=== PATIENT | female | born 1970 | race Caucasian/White ===

== ENCOUNTER 2019-11-18 09:00 | Inpatient (IN) ==
[2019-11-18] MEDS ORDERED: GLUCAGON 1 MG VIAL IM PRN ×2 (10:21→10:35)
[2019-11-18] MEDS ORDERED: DEXTROSE 50% 25 GM/50 ML VIAL IV PRN ×2 (10:21→10:35)
[2019-11-18] MEDS ORDERED: SODIUM CHLORIDE 0.9% 1,000 ML IV SCH (10:30)
[2019-11-18 10:55] LABS: Basophils # 0.1 10*3/uL (0.0-0.2); Basophils % 0.6 % (0.0-0.8); Eosinophils # 0.1 10*3/uL (0.0-0.87); Eosinophils % 0.6 % (0.00-10.9); Hematocrit 38.2 VOL% (35.7-47.0); Hemoglobin 13.6 GM/DL (12.0-16.0); Immature Granulocytes % 0.3 %; Immature Granulocytes Absolute 0.03 #; Lymphocytes % 32.6 % (21.3-54.2); Mean Corpuscular HGB Conc 35.6 GM/DL (32-36); Mean Corpuscular Volume 85.8 FL (87-102); Mean Platelet Volume 10.3 FL (9.6-12.0); Monocytes % 5.9 % (1.7-12.7); Platelet Count 214 T/CUMM (130-400); Red Blood Count 4.45 MC/CUMM (3.8-5.5); Red Cell Distribution Width 13.2 % (9.3-17.3); White Blood Count 9.3 T/CUMM (4-12)
[2019-11-18 11:14] LABS: Atypical Lymphocytes Few; Eosinophils 2 % (0-10); Hypochromasia 1+; Lymphocytes 27 % (20-55); Microcytosis Slight; Platelet Estimate Adequate; Segmented Neutrophils 69 % (50-85); Total Cells Counted 100
[2019-11-18 11:32] LABS: Alanine Aminotransferase 27 U/L (13-56); Albumin 3.7 G/DL (3.4-5.0); Alkaline Phosphatase 94 U/L (45-117); Aspartate Amino Transferase 15 U/L (0-37); Bilirubin,Total < 0.39 MG/DL (0.2-1.0); Blood Urea Nitrogen 18 MG/DL (7-18); Calcium 9.5 MG/DL (8.5-10.1); Estimated Glom Filtration Rate 59 ML/MIN; Glucose 145 MG/DL (74-106); Osmolality,Calculated 281.5 MOS/KG (273-304); Total Protein 7.6 G/DL (6.4-8.3)
[2019-11-18] MEDS: CLORAZEPATE 7.5 MG TABLET PO PRN ×2 (12:16→18:07)
[2019-11-18] MEDS ORDERED: LINACLOTIDE 145 MCG CAPSULE PO PRN (12:38)
[2019-11-18] MEDS ORDERED: ZALEPLON 5 MG CAPSULE PO PRN (12:41)
[2019-11-18] MEDS: INSULIN REGULAR 100 UNIT/ML SUBCUT SCH ×3 (12:54→20:52)
[2019-11-18] MEDS ORDERED: ONDANSETRON 4 MG TABLET PO PRN (13:02)
[2019-11-18] MEDS ORDERED: ONDANSETRON 4 MG/2 ML VIAL IV PRN (13:02)
[2019-11-18 13:50] LABS: ABG Base Excess 0.1 MMOL/L (-2.5-2.5); ABG HCO3 24.5 MMOL/L (20-26); ABG Oxygen Saturation 97.5 % (95-100); ABG PCO2 35.1 MM HG (35-48); ABG PH 7.437 (7.35-7.45); ABG PO2 82.9 MM HG (80-95); ABG TCO2 20.5 MMOL/L (23-27)
[2019-11-18] MEDS: ALBUTEROL 2.5 MG/3 ML NEB RESP TX SCH ×3 (14:30→23:47)
[2019-11-18] MEDS: CHLORHEXIDINE 4% SOLN 118 ML BOTTLE TOP SCH ×2 (17:40→20:52)
[2019-11-18] MEDS ORDERED: ALBUMIN 5% 12.5 GM/250 ML VIAL IV ONE (19:00)
[2019-11-18] MEDS ORDERED: PHENYLEPHRINE DRIP 40 MG/250 ML PREMIX IV ONE (19:01)
[2019-11-18] MEDS ORDERED: POTASSIUM CHLORIDE RIDER 100 ML IV ONE (19:01)
[2019-11-18] MEDS: ZIPRASIDONE 20 MG CAPSULE PO SCH (20:52)
[2019-11-18] MEDS: CHLORHEXIDINE 0.12% ORAL RINSE 60 ML BOTTLE SWISH/SPIT SCH (20:53)
[2019-11-18] MEDS: HYDROXYCHLOROQUINE 200 MG TABLET PO SCH (20:53)
[2019-11-18] MEDS ORDERED: GABAPENTIN 300 MG CAPSULE PO SCH (21:00)
[2019-11-18] MEDS: ARFORMOTEROL 15 MCG/2 ML NEB RESP TX SCH (23:47)
[2019-11-19] MEDS: CLORAZEPATE 7.5 MG TABLET PO PRN (00:03)
[2019-11-19] MEDS: ALBUTEROL 2.5 MG/3 ML NEB RESP TX SCH ×2 (03:14→07:01)
[2019-11-19] MEDS: CHLORHEXIDINE 4% SOLN 118 ML BOTTLE TOP SCH ×2 (03:59→10:32)
[2019-11-19] MEDS ORDERED: VANCOMYCIN 500 MG VIAL ONE (04:22)
[2019-11-19] MEDS ORDERED: PAPAVERINE 60 MG/2 ML VIAL ONE (04:22)
[2019-11-19] MEDS ORDERED: VANCOMYCIN 1,000 MG VIAL ONE (04:22)
[2019-11-19] MEDS ORDERED: VANCOMYCIN INJ 1,000 MG in SODIUM CHLORIDE 0.9% 250 ML IV ONE ×2 (05:30→08:00)
[2019-11-19] MEDS ORDERED: FAMOTIDINE 20 MG TABLET PO ONE (05:30)
[2019-11-19] MEDS ORDERED: DIAZEPAM 5 MG TABLET PO ONE (05:30)
[2019-11-19] MEDS ORDERED: CALCIUM CHLORIDE 1,000 MG/10 ML VIAL IV ONE (05:53)
[2019-11-19] MEDS ORDERED: LIDOCAINE 2% 5 ML VIAL ONE ×2 (05:53→10:21)
[2019-11-19] MEDS ORDERED: SUFentanil 250 MCG/5 ML AMP ONE (05:53)
[2019-11-19] MEDS ORDERED: PHENYLEPHRINE DRIP 20 MG/250 ML PREMIX IV ONE (05:53)
[2019-11-19] MEDS ORDERED: HEPARIN/NACL 0.9% 2 UNITS/ML 500 ML IV ONE (05:53)
[2019-11-19] MEDS ORDERED: LACTATED RINGERS 1,000 ML IV ONE (05:54)
[2019-11-19] MEDS ORDERED: SODIUM CHLORIDE 0.9% 1,000 ML IV ONE (05:54)
[2019-11-19] MEDS ORDERED: NITROGLYCERIN DRIP 50 MG/250 ML BOTTLE IV ONE (05:54)
[2019-11-19] MEDS ORDERED: SODIUM CHLORIDE 0.9% 250 ML IV ONE (05:54)
[2019-11-19] MEDS ORDERED: MINERAL OIL/PETROLATUM OPH OINT 3.5 GM TUBE ONE (05:54)
[2019-11-19] MEDS ORDERED: VECURONIUM 10 MG VIAL IV ONE (05:54)
[2019-11-19] MEDS ORDERED: ePHEDrine 50 MG/ML VIAL ONE (05:54)
[2019-11-19] MEDS ORDERED: MIDAZOLAM 10 MG/2 ML VIAL ONE (05:54)
[2019-11-19] MEDS ORDERED: ETOMIDATE 40 MG/20 ML VIAL IV ONE (05:54)
[2019-11-19] MEDS ORDERED: AMINOCAPROIC ACID 5,000 MG/20 ML VIAL ONE (05:54)
[2019-11-19] MEDS: ARFORMOTEROL 15 MCG/2 ML NEB RESP TX SCH (07:17)
[2019-11-19 07:46] LABS: ABG Base Excess -2.5 MMOL/L (-2.5-2.5); ABG HCO3 22.3 MMOL/L (20-26); ABG PCO2 38.1 MM HG (35-48); ABG PH 7.375 (7.35-7.45); ABG TCO2 19.9 MMOL/L (23-27); Glucose Heart Surgery 230 MG/DL (74-106); Hemoglobin Heart Surgery 11.7 G/DL (12.0-16.0); Ionized Calcium Arterial 1.21 MMOL/L (1.21-1.46); PCO2 Patient Temp Arterial 38.1 MMHG; PH Patient Temp Arterial 7.375; Patient Temperature 37 CELCIUS; Potassium Heart/CVR 3.7 MMOL/L (3.5-5.1); Sodium Heart/CVR 138 MMOL/L (135-145)
[2019-11-19 08:27] LABS: Bilirubin,Urine Negative (Negative); Blood, Urine Small mg/dL (Negative); Glucose,Urine (UA) >=500 mg/dL (Negative); Ketones,Urine Negative (Negative); Mucus,Urine Occasional /LPF (Occasional); Nitrite,Urine Negative (Negative); Protein,Urine Negative; RBC,Urine 1 /HPF (0-4); Squamous Epithelial Cell,Urine Occasional /HPF (0-10); Urine Appearance CLEAR (Clear); Urine Color Yellow (Yellow); Urine Specific Gravity 1.017 (1.001-1.035); Urine Urobilinogen < 2.0 EU/DL (0.2-1.0); WBC,Urine <1 /HPF (0-6)
[2019-11-19] MEDS ORDERED: FOLIC ACID 1 MG TABLET PO SCH (09:00)
[2019-11-19] MEDS ORDERED: MULTIVITAMIN (BEROCCA) TABLET PO SCH (09:00)
[2019-11-19] MEDS ORDERED: THIAMINE 100 MG TABLET PO SCH (09:00)
[2019-11-19 09:09] LABS: Hematocrit Heart Surgery 23.3 PERCENT (37-47); Hemoglobin Heart Surgery 7.5 G/DL (12.0-16.0); PCO2 Patient Temp Venous 35.9 MM HG; PH Patient Temp Venous 7.4; PO2 Patient Temp Venous 37.8 MM HG; Potassium Heart/CVR 3.8 MMOL/L (3.5-5.1); VBG HCO3 22.5 MEQ/L (24-28); VBG Oxygen Saturation 81.2 %; VBG PCO2 41.5 MMHG (41-51); VBG PH 7.357; VBG PO2 46.4 MMHG (17-40)
[2019-11-19 09:42] LABS: Hematocrit Heart Surgery 25.3 PERCENT (37-47); Hemoglobin Heart Surgery 8.1 G/DL (12.0-16.0); PCO2 Patient Temp Venous 34.6 MM HG; PH Patient Temp Venous 7.447; PO2 Patient Temp Venous 34.9 MM HG; Potassium Heart/CVR 4.1 MMOL/L (3.5-5.1); VBG Base Excess 0.3 MEQ/L (0-4); VBG HCO3 24.4 MEQ/L (24-28); VBG Oxygen Saturation 79.4 %; VBG PH 7.403; VBG PO2 42.9 MMHG (17-40)
[2019-11-19] MEDS ORDERED: THROMBIN TOPICAL (RECOMBINANT) 5,000 UNIT VIAL TOP ONE (10:13)
[2019-11-19 10:17] LABS: ABG Base Excess -1.2 MMOL/L (-2.5-2.5); ABG HCO3 23.4 MMOL/L (20-26); ABG PCO2 43.5 MM HG (35-48); ABG PH 7.355 (7.35-7.45); ABG TCO2 22.4 MMOL/L (23-27); Glucose Heart Surgery 279 MG/DL (74-106); Hematocrit Heart Surgery 29.3 PERCENT (37-47); Hemoglobin Heart Surgery 9.4 G/DL (12.0-16.0); Ionized Calcium Arterial 1.18 MMOL/L (1.21-1.46); PCO2 Patient Temp Arterial 43.5 MMHG; PH Patient Temp Arterial 7.355; Patient Temperature 37 CELCIUS; Potassium Heart/CVR 3.7 MMOL/L (3.5-5.1); Sodium Heart/CVR 136 MMOL/L (135-145)
[2019-11-19] MEDS ORDERED: PROTAMINE SULFATE 250 MG/25 ML VIAL IV ONE (10:21)
[2019-11-19] MEDS ORDERED: DEXTROSE 5% KCL 20 MEQ 20 MEQ/1,000 ML BAG IV ONE (10:21)
[2019-11-19] MEDS ORDERED: MANNITOL 100 GM/500 ML BAG IV ONE (10:21)
[2019-11-19] MEDS ORDERED: ALBUMIN 25% 25 GM/100 ML VIAL IV ONE (10:21)
[2019-11-19] MEDS ORDERED: SODIUM BICARBONATE 50 MEQ/50 ML VIAL IV ONE (10:21)
[2019-11-19] MEDS ORDERED: methylPREDNISolone SOD SUC 1,000 MG/8 ML VIAL ONE (10:22)
[2019-11-19] MEDS ORDERED: FUROSEMIDE 20 MG/2 ML VIAL ONE (10:22)
[2019-11-19] MEDS ORDERED: MAGNESIUM SULFATE 5 GM/10 ML VIAL IV ONE (10:22)
[2019-11-19] MEDS ORDERED: HEPARIN 10,000 UNIT/10 ML VIAL ONE (10:22)
[2019-11-19] MEDS: ZIPRASIDONE 20 MG CAPSULE PO SCH (10:31)
[2019-11-19] MEDS: INSULIN REGULAR 100 UNIT/ML SUBCUT SCH (10:31)
[2019-11-19] MEDS: HYDROXYCHLOROQUINE 200 MG TABLET PO SCH (10:32)
[2019-11-19] MEDS: CHLORHEXIDINE 0.12% ORAL RINSE 60 ML BOTTLE SWISH/SPIT SCH ×2 (10:32→21:18)
[2019-11-19] MEDS ORDERED: MIDAZOLAM 2 MG/2 ML VIAL IV PRN (10:54)
[2019-11-19] MEDS ORDERED: MIDAZOLAM 10 MG/2 ML VIAL IV PRN (10:54)
[2019-11-19] MEDS ORDERED: INSULIN REGULAR 100 UNIT/ML IV ONE (10:54)
[2019-11-19] MEDS ORDERED: DEXTROSE 50% 25 GM/50 ML VIAL IV PRN ×2 (10:54)
[2019-11-19] MEDS ORDERED: CHLORHEXIDINE 4% SOLN 118 ML BOTTLE TOP PRN (10:54)
[2019-11-19] MEDS ORDERED: VECURONIUM 10 MG VIAL IV PRN ×2 (10:54)
[2019-11-19] MEDS ORDERED: CALCIUM CHLORIDE 1,000 MG/10 ML SYRINGE IV PRN (10:54)
[2019-11-19] MEDS ORDERED: INSULIN REGULAR 100 UNIT/ML IV PRN (10:54)
[2019-11-19] MEDS ORDERED: MAGNESIUM SULF RIDER 2 GM in PREMIX 1 EACH IV PRN (10:54)
[2019-11-19] MEDS ORDERED: PHENYLEPHRINE DRIP 40 MG/250 ML PREMIX IV PRN (10:54)
[2019-11-19] MEDS ORDERED: LACTATED RINGERS 250 ML IV PRN (10:54)
[2019-11-19] MEDS ORDERED: NITROPRUSSIDE 100 MG in DEXTROSE 5% 250 ML IV PRN (10:54)
[2019-11-19] MEDS ORDERED: ACETAMINOPHEN 650 MG SUPP RECTAL PRN (10:54)
[2019-11-19] MEDS ORDERED: MAGNESIUM SULF RIDER 4 GM in PREMIX 1 EACH IV PRN (10:54)
[2019-11-19] MEDS ORDERED: INSULIN REGULAR DRIP 100 ML IV SCH (11:00)
[2019-11-19] MEDS ORDERED: SODIUM CHLORIDE 0.45% 1,000 ML IV SCH ×2 (11:00)
[2019-11-19] MEDS: LACTATED RINGERS 1,000 ML IV PRN ×3 (11:05→17:00)
[2019-11-19] MEDS ORDERED: fentaNYL 100 MCG/2 ML VIAL ONE (11:21)
[2019-11-19] MEDS ORDERED: ESMOLOL 100 MG/10 ML VIAL IV ONE (11:21)
[2019-11-19] MEDS ORDERED: PROTAMINE SULFATE 50 MG/5 ML VIAL IV ONE (11:33)
[2019-11-19 11:49] LABS: ABG Base Excess -1.2 MMOL/L (-2.5-2.5); ABG HCO3 23.4 MMOL/L (20-26); ABG Oxygen Saturation 98.8 % (95-100); ABG PCO2 42.7 MM HG (35-48); ABG PH 7.362 (7.35-7.45); ABG TCO2 22.2 MMOL/L (23-27); Glucose Heart Surgery 255 MG/DL (74-106); Hematocrit Heart Surgery 29.9 PERCENT (37-47); Hemoglobin Heart Surgery 9.7 G/DL (12.0-16.0); Potassium Heart/CVR 3.9 MMOL/L (3.5-5.1)
[2019-11-19 11:56] LABS: Basophils % 0.3 % (0.0-0.8); Hematocrit 27.8 VOL% (35.7-47.0); Immature Granulocytes % 0.7 %; Immature Granulocytes Absolute 0.05 #; Lymphocytes # 1.3 10*3/uL (1.4-4.0); Lymphocytes % 17.4 % (21.3-54.2); Mean Corpuscular HGB Conc 34.2 GM/DL (32-36); Mean Platelet Volume 10.3 FL (9.6-12.0); Monocytes % 6.9 % (1.7-12.7); Neutrophils % 74.7 % (38.7-73.9); Red Cell Distribution Width 13.3 % (9.3-17.3); White Blood Count 7.3 T/CUMM (4-12)
[2019-11-19 11:57] LABS: Hemoglobin 9.5 GM/DL (12.0-16.0); Platelet Count 125 T/CUMM (130-400); Red Blood Count 3.09 MC/CUMM (3.8-5.5)
[2019-11-19] MEDS: ALBUMIN 5% 12.5 GM in PREMIX 1 EACH IV PRN ×2 (12:00→16:50)
[2019-11-19 12:02] LABS: INR 1.1; PT Patient Result 11.9 SECS (9.8-11.9); Partial Thromboplastin Time 25.9 SECS (23.9-33.8)
[2019-11-19] MEDS: POTASSIUM CHLORIDE RIDER 20 MEQ in PREMIX 1 EACH IV PRN (12:15)
[2019-11-19 12:23] LABS: CKMB % 6.4 %
[2019-11-19 12:24] LABS: Troponin I 3.15 NG/ML (0.00-0.045)
[2019-11-19 12:40] LABS: Albumin 3.2 G/DL (3.4-5.0); Bilirubin,Total 0.8 MG/DL (0.2-1.0); Calcium 8.4 MG/DL (8.5-10.1); Osmolality,Calculated 287.4 MOS/KG (273-304); Total Protein 5.5 G/DL (6.4-8.3)
[2019-11-19] MEDS: POTASSIUM CHLORIDE RIDER 10 MEQ in PREMIX 1 EACH IV PRN (12:45)
[2019-11-19 14:13] LABS: ABG Oxygen Saturation 97.9 % (95-100); ABG PCO2 40.4 MM HG (35-48); ABG PH 7.374 (7.35-7.45); ABG PO2 128.5 MM HG (80-95); ABG TCO2 24.3 MMOL/L (23-27); Glucose Heart Surgery 210 MG/DL (74-106); Potassium Heart/CVR 3.8 MMOL/L (3.5-5.1)
[2019-11-19] MEDS: HYDROmorphone 2 MG/1 ML VIAL IV PRN ×3 (15:10→21:17)
[2019-11-19 17:07] LABS: ABG Base Excess 0.3 MMOL/L (-2.5-2.5); ABG HCO3 24.7 MMOL/L (20-26); ABG Oxygen Saturation 99.2 % (95-100); ABG PCO2 44.9 MM HG (35-48); ABG PH 7.368 (7.35-7.45); ABG TCO2 23.4 MMOL/L (23-27); Glucose Heart Surgery 201 MG/DL (74-106); Hemoglobin Heart Surgery 10.7 G/DL (12.0-16.0); Potassium Heart/CVR 4.2 MMOL/L (3.5-5.1)
[2019-11-19] MEDS ORDERED: FUROSEMIDE 40 MG/4 ML VIAL IV PRN (18:29)
[2019-11-19] MEDS ORDERED: FUROSEMIDE 40 MG/4 ML VIAL IV ONE (18:29)
[2019-11-19] MEDS ORDERED: FUROSEMIDE 40 MG/4 ML VIAL ONE (18:34)
[2019-11-19 19:21] LABS: ABG Base Excess 2.7 MMOL/L (-2.5-2.5); ABG HCO3 26.9 MMOL/L (20-26); ABG Oxygen Saturation 99.3 % (95-100); ABG PCO2 44.5 MM HG (35-48); ABG PH 7.405 (7.35-7.45); ABG TCO2 24.9 MMOL/L (23-27); Glucose Heart Surgery 166 MG/DL (74-106); Hematocrit Heart Surgery 35.1 PERCENT (37-47); Hemoglobin Heart Surgery 11.4 G/DL (12.0-16.0)
[2019-11-19 19:55] LABS: Troponin I 2.36 NG/ML (0.00-0.045)
[2019-11-19 21:02] LABS: ABG Base Excess 3.5 MMOL/L (-2.5-2.5); ABG HCO3 27.6 MMOL/L (20-26); ABG Oxygen Saturation 98.9 % (95-100); ABG PCO2 45.2 MM HG (35-48); ABG PH 7.411 (7.35-7.45); ABG TCO2 25.7 MMOL/L (23-27); Glucose Heart Surgery 166 MG/DL (74-106); Hematocrit Heart Surgery 34.1 PERCENT (37-47); Hemoglobin Heart Surgery 11.1 G/DL (12.0-16.0); Potassium Heart/CVR 3.7 MMOL/L (3.5-5.1)
[2019-11-19] MEDS: VANCOMYCIN INJ 1,000 MG in SODIUM CHLORIDE 0.9% 250 ML IV SCH (22:20)
[2019-11-19 22:35] LABS: ABG Base Excess 3.4 MMOL/L (-2.5-2.5); ABG HCO3 27.5 MMOL/L (20-26); ABG Oxygen Saturation 98.2 % (95-100); ABG PCO2 45.9 MM HG (35-48); ABG PH 7.405 (7.35-7.45); ABG TCO2 25.8 MMOL/L (23-27); Glucose Heart Surgery 159 MG/DL (74-106); Hematocrit Heart Surgery 33.5 PERCENT (37-47); Hemoglobin Heart Surgery 10.9 G/DL (12.0-16.0); Potassium Heart/CVR 3.8 MMOL/L (3.5-5.1)
[2019-11-19 23:20] LABS: ABG Base Excess 3.5 MMOL/L (-2.5-2.5); ABG HCO3 27.6 MMOL/L (20-26); ABG Oxygen Saturation 98.7 % (95-100); ABG PCO2 43.5 MM HG (35-48); ABG PH 7.423 (7.35-7.45); ABG TCO2 25.6 MMOL/L (23-27); Glucose Heart Surgery 156 MG/DL (74-106); Hematocrit Heart Surgery 32.7 PERCENT (37-47); Hemoglobin Heart Surgery 10.6 G/DL (12.0-16.0); Potassium Heart/CVR 3.7 MMOL/L (3.5-5.1)
[2019-11-20 00:27] LABS: ABG HCO3 25.4 MMOL/L (20-26); ABG Oxygen Saturation 97.4 % (95-100); ABG PCO2 44.7 MM HG (35-48); ABG PH 7.373 (7.35-7.45); ABG PO2 107.5 MM HG (80-95); ABG TCO2 26.8 MMOL/L (23-27); Glucose Heart Surgery 161 MG/DL (74-106); Hemoglobin Heart Surgery 11.8 G/DL (12.0-16.0); Potassium Heart/CVR 3.9 MMOL/L (3.5-5.1)
[2019-11-20] MEDS: HYDROmorphone 2 MG/1 ML VIAL IV PRN ×2 (00:30→03:41)
[2019-11-20] MEDS: ALBUMIN 5% 12.5 GM in PREMIX 1 EACH IV PRN (00:55)
[2019-11-20] MEDS: POTASSIUM CHLORIDE RIDER 10 MEQ in PREMIX 1 EACH IV PRN ×2 (01:50→04:23)
[2019-11-20 03:34] LABS: ABG Base Excess 4.9 MMOL/L (-2.5-2.5); ABG HCO3 29.6 MMOL/L (20-26); ABG Oxygen Saturation 97.2 % (95-100); ABG PCO2 43.9 MM HG (35-48); ABG PH 7.446 (7.35-7.45); ABG PO2 96.9 MM HG (80-95); ABG TCO2 30.9 MMOL/L (23-27); Glucose Heart Surgery 156 MG/DL (74-106); Hemoglobin Heart Surgery 11.8 G/DL (12.0-16.0); Potassium Heart/CVR 3.8 MMOL/L (3.5-5.1)
[2019-11-20 03:42] LABS: Basophils % 0.1 % (0.0-0.8); Hematocrit 32.9 VOL% (35.7-47.0); Hemoglobin 11.3 GM/DL (12.0-16.0); Immature Granulocytes % 0.5 %; Immature Granulocytes Absolute 0.09 #; Lymphocytes # 1.1 10*3/uL (1.4-4.0); Lymphocytes % 6.4 % (21.3-54.2); Mean Corpuscular HGB Conc 34.3 GM/DL (32-36); Mean Corpuscular Volume 87.3 FL (87-102); Mean Platelet Volume 10.9 FL (9.6-12.0); Monocytes % 4.2 % (1.7-12.7); Neutrophils % 88.8 % (38.7-73.9); Platelet Count 173 T/CUMM (130-400); Red Blood Count 3.77 MC/CUMM (3.8-5.5); White Blood Count 16.8 T/CUMM (4-12)
[2019-11-20] MEDS: POTASSIUM CHLORIDE RIDER 20 MEQ in PREMIX 1 EACH IV PRN (03:49)
[2019-11-20 04:07] LABS: Bilirubin,Direct 0.17 MG/DL (0.0-0.20); Bilirubin,Total 0.5 MG/DL (0.2-1.0); Calcium 8.8 MG/DL (8.5-10.1); Osmolality,Calculated 281.4 MOS/KG (273-304); Total Protein 6.9 G/DL (6.4-8.3)
[2019-11-20 04:09] LABS: CKMB % 1.9 %
[2019-11-20 04:12] LABS: Troponin I 1.55 NG/ML (0.00-0.045)
[2019-11-20] MEDS ORDERED: oxyCODONE/ACETAMINOPHEN 5-325 MG TABLET PO PRN (07:19)
[2019-11-20] MEDS ORDERED: KETOROLAC 30 MG/1 ML VIAL IV SCH (09:00)
[2019-11-20] MEDS ORDERED: GABAPENTIN 300 MG CAPSULE PO SCH (09:00)
[2019-11-20] MEDS: ONDANSETRON 4 MG/2 ML VIAL IV PRN ×2 (09:00→20:44)
[2019-11-20] MEDS ORDERED: ASPIRIN EC 325 MG TABLET PO SCH (09:00)
[2019-11-20] MEDS: INSULIN REGULAR 100 UNIT/ML SUBCUT SCH ×4 (09:01→20:44)
[2019-11-20] MEDS: ZIPRASIDONE 20 MG CAPSULE PO SCH ×2 (09:01→20:42)
[2019-11-20] MEDS: FOLIC ACID 1 MG TABLET PO SCH (09:01)
[2019-11-20] MEDS: KETOROLAC 30 MG/1 ML VIAL IV SCH ×3 (09:01→20:43)
[2019-11-20] MEDS: TOPIRAMATE 25 MG TABLET PO SCH (09:02)
[2019-11-20] MEDS: OLANZapine 5 MG TABLET PO SCH (09:02)
[2019-11-20] MEDS: HYDROXYCHLOROQUINE 200 MG TABLET PO SCH ×2 (09:02→20:41)
[2019-11-20] MEDS: CHLORHEXIDINE 0.12% ORAL RINSE 60 ML BOTTLE SWISH/SPIT SCH ×2 (09:02→20:50)
[2019-11-20] MEDS: THIAMINE 100 MG TABLET PO SCH (09:02)
[2019-11-20] MEDS: CLORAZEPATE 3.75 MG TABLET PO PRN ×2 (10:03→20:55)
[2019-11-20] MEDS: VANCOMYCIN INJ 1,000 MG in SODIUM CHLORIDE 0.9% 250 ML IV SCH ×2 (10:42→21:30)
[2019-11-20 13:48] LABS: CKMB % 1.4 %; Troponin I 1.29 NG/ML (0.00-0.045)
[2019-11-20] MEDS ORDERED: SODIUM CHLOR 0.45% KCL 20 MEQ 20 MEQ/1,000 ML BAG IV SCH (20:00)
[2019-11-20] MEDS: ARFORMOTEROL 15 MCG/2 ML NEB RESP TX SCH (20:40)
[2019-11-20] MEDS: ATORVASTATIN 40 MG TABLET PO SCH (20:42)
[2019-11-20] MEDS: GABAPENTIN 300 MG CAPSULE PO SCH (20:42)
[2019-11-21] MEDS: INSULIN REGULAR 100 UNIT/ML SUBCUT SCH ×7 (00:22→21:41)
[2019-11-21] MEDS: KETOROLAC 30 MG/1 ML VIAL IV SCH ×4 (01:59→21:29)
[2019-11-21] MEDS: NICOTINE 14 MG/24 HR PATCH TRANSDERM PRN (04:35)
[2019-11-21] MEDS: CLORAZEPATE 3.75 MG TABLET PO PRN ×3 (04:36→21:40)
[2019-11-21 04:43] LABS: Basophils % 0.4 % (0.0-0.8); Hematocrit 32.6 VOL% (35.7-47.0); Hemoglobin 10.7 GM/DL (12.0-16.0); Immature Granulocytes % 0.6 %; Immature Granulocytes Absolute 0.06 #; Lymphocytes # 1.3 10*3/uL (1.4-4.0); Lymphocytes % 12.1 % (21.3-54.2); Mean Corpuscular HGB Conc 32.8 GM/DL (32-36); Mean Corpuscular Volume 90.3 FL (87-102); Mean Platelet Volume 10.6 FL (9.6-12.0); Monocytes % 9.4 % (1.7-12.7); Neutrophils % 77.5 % (38.7-73.9); Platelet Count 143 T/CUMM (130-400); Red Blood Count 3.61 MC/CUMM (3.8-5.5); Red Cell Distribution Width 14.4 % (9.3-17.3); White Blood Count 10.8 T/CUMM (4-12)
[2019-11-21 05:23] LABS: Albumin 3.3 G/DL (3.4-5.0); Bilirubin,Direct 0.1 MG/DL (0.0-0.20); Bilirubin,Total 0.4 MG/DL (0.2-1.0); Calcium 8.5 MG/DL (8.5-10.1); Osmolality,Calculated 282.7 MOS/KG (273-304); Total Protein 6.5 G/DL (6.4-8.3)
[2019-11-21] MEDS ORDERED: LINACLOTIDE 145 MCG CAPSULE PO PRN (06:34)
[2019-11-21] MEDS ORDERED: MAGNESIUM SULF RIDER 4 GM in PREMIX 1 EACH IV PRN (06:55)
[2019-11-21] MEDS ORDERED: POTASSIUM CHLORIDE 20 MEQ TABLET PO PRN (06:55)
[2019-11-21] MEDS ORDERED: ZALEPLON 5 MG CAPSULE PO PRN (06:55)
[2019-11-21] MEDS ORDERED: MAGNESIUM HYDROXIDE SUSP 30 ML UDCUP PO PRN (06:55)
[2019-11-21] MEDS ORDERED: ACETAMINOPHEN 325 MG TABLET PO PRN (06:55)
[2019-11-21] MEDS ORDERED: ALUMINUM/MAGNES/SIMETH MAX STR 30 ML UDCUP PO PRN (06:55)
[2019-11-21] MEDS ORDERED: MAGNESIUM SULF RIDER 2 GM in PREMIX 1 EACH IV PRN (06:55)
[2019-11-21] MEDS ORDERED: GLUCAGON 1 MG VIAL IM PRN ×2 (06:55)
[2019-11-21] MEDS ORDERED: DEXTROSE 50% 25 GM/50 ML VIAL IV PRN ×2 (06:55)
[2019-11-21] MEDS ORDERED: NICOTINE 14 MG/24 HR PATCH TRANSDERM SCH (07:00)
[2019-11-21] MEDS ORDERED: ARFORMOTEROL 15 MCG/2 ML NEB RESP TX SCH (07:00)
[2019-11-21] MEDS ORDERED: PROMETHAZINE 25 MG TABLET PO PRN (07:07)
[2019-11-21] MEDS: ALBUTEROL 2.5 MG/3 ML NEB RESP TX SCH ×4 (07:35→22:43)
[2019-11-21] MEDS: ARFORMOTEROL 15 MCG/2 ML NEB RESP TX SCH ×2 (07:35→22:43)
[2019-11-21] MEDS ORDERED: INSULIN GLARGINE 100 UNIT/ML SUBCUT ONE (07:54)
[2019-11-21] MEDS: SODIUM CHLOR 0.45% KCL 20 MEQ 20 MEQ/1,000 ML BAG IV SCH (08:19)
[2019-11-21] MEDS: FERROUS SULFATE 325 MG TABLET PO SCH (08:21)
[2019-11-21] MEDS: INSULIN GLARGINE 100 UNIT/ML SUBCUT SCH ×2 (08:21→21:40)
[2019-11-21] MEDS: ASPIRIN EC 325 MG TABLET PO SCH (08:21)
[2019-11-21] MEDS: FOLIC ACID 1 MG TABLET PO SCH (08:22)
[2019-11-21] MEDS: HYDROXYCHLOROQUINE 200 MG TABLET PO SCH ×2 (08:22→21:29)
[2019-11-21] MEDS: ZIPRASIDONE 20 MG CAPSULE PO SCH ×2 (08:22→21:28)
[2019-11-21] MEDS: THIAMINE 100 MG TABLET PO SCH (08:22)
[2019-11-21] MEDS: TOPIRAMATE 25 MG TABLET PO SCH (08:22)
[2019-11-21] MEDS: PANTOPRAZOLE 40 MG TABLET PO SCH (08:23)
[2019-11-21] MEDS: OLANZapine 5 MG TABLET PO SCH (08:23)
[2019-11-21] MEDS: MULTIVITAMIN (BEROCCA) TABLET PO SCH (08:23)
[2019-11-21] MEDS: oxyCODONE/ACETAMINOPHEN 5-325 MG TABLET PO PRN ×3 (08:24→19:24)
[2019-11-21] MEDS: lisinopriL 2.5 MG TABLET PO SCH (08:25)
[2019-11-21] MEDS: ONDANSETRON 4 MG/2 ML VIAL IV PRN ×3 (08:37→21:43)
[2019-11-21] MEDS: DOCUSATE SODIUM 100 MG CAPSULE PO SCH (08:41)
[2019-11-21] MEDS: CHLORHEXIDINE 0.12% ORAL RINSE 60 ML BOTTLE SWISH/SPIT SCH ×2 (08:42→21:45)
[2019-11-21] MEDS ORDERED: ZIPRASIDONE 20 MG CAPSULE PO SCH (09:00)
[2019-11-21] MEDS ORDERED: FOLIC ACID 1 MG TABLET PO SCH (09:00)
[2019-11-21] MEDS ORDERED: METOPROLOL TARTRATE 25 MG TABLET PO SCH (09:00)
[2019-11-21] MEDS ORDERED: THIAMINE 100 MG TABLET PO SCH (09:00)
[2019-11-21] MEDS ORDERED: HYDROXYCHLOROQUINE 200 MG TABLET PO SCH (09:00)
[2019-11-21] MEDS ORDERED: GABAPENTIN 300 MG CAPSULE PO SCH (21:00)
[2019-11-21] MEDS: GABAPENTIN 300 MG CAPSULE PO SCH (21:28)
[2019-11-21] MEDS: ATORVASTATIN 40 MG TABLET PO SCH (21:28)
[2019-11-22] MEDS: oxyCODONE/ACETAMINOPHEN 5-325 MG TABLET PO PRN ×3 (02:39→23:36)
[2019-11-22] MEDS: KETOROLAC 30 MG/1 ML VIAL IV SCH ×4 (02:40→21:57)
[2019-11-22] MEDS: ALBUTEROL 2.5 MG/3 ML NEB RESP TX SCH ×5 (02:41→18:53)
[2019-11-22] MEDS: CLORAZEPATE 3.75 MG TABLET PO PRN ×3 (04:51→21:56)
[2019-11-22] MEDS ORDERED: FUROSEMIDE 40 MG/4 ML VIAL IV ONE (06:00)
[2019-11-22 06:48] LABS: Alanine Aminotransferase 29 U/L (13-56); Albumin 2.5 G/DL (3.4-5.0); Alkaline Phosphatase 56 U/L (45-117); Aspartate Amino Transferase 16 U/L (0-37); Basophils % 0.5 % (0.0-0.8); Bilirubin,Indirect 0.3 MG/DL (0.0-1.0); Blood Urea Nitrogen 23 MG/DL (7-18); Calcium 8.2 MG/DL (8.5-10.1); Eosinophils # 0.1 10*3/uL (0.0-0.87); Eosinophils % 1.2 % (0.00-10.9); Estimated Glom Filtration Rate 67 ML/MIN; Glucose 135 MG/DL (74-106); Hematocrit 26.2 VOL% (35.7-47.0); Hemoglobin 8.5 GM/DL (12.0-16.0); Immature Granulocytes % 0.2 %; Immature Granulocytes Absolute 0.02 #; Lymphocytes # 2.2 10*3/uL (1.4-4.0); Lymphocytes % 26.1 % (21.3-54.2); Mean Corpuscular HGB Conc 32.4 GM/DL (32-36); Mean Corpuscular Volume 92.6 FL (87-102); Mean Platelet Volume 11.3 FL (9.6-12.0); Monocytes % 9.4 % (1.7-12.7); Neutrophils % 62.6 % (38.7-73.9); Osmolality,Calculated 280.7 MOS/KG (273-304); Platelet Count 139 T/CUMM (130-400); Red Blood Count 2.83 MC/CUMM (3.8-5.5); Red Cell Distribution Width 14.6 % (9.3-17.3); Total Protein 5.4 G/DL (6.4-8.3); White Blood Count 8.5 T/CUMM (4-12)
[2019-11-22 06:51] LABS: Troponin I 0.377 NG/ML (0.00-0.045)
[2019-11-22] MEDS: ARFORMOTEROL 15 MCG/2 ML NEB RESP TX SCH ×2 (07:10→18:53)
[2019-11-22 07:19] LABS: Hypochromasia 1+; Microcytosis Slight; Platelet Estimate Adequate
[2019-11-22] MEDS: SODIUM CHLOR 0.45% KCL 20 MEQ 20 MEQ/1,000 ML BAG IV SCH (07:42)
[2019-11-22] MEDS: INSULIN REGULAR 100 UNIT/ML SUBCUT SCH ×4 (08:49→21:55)
[2019-11-22] MEDS: OLANZapine 5 MG TABLET PO SCH (10:37)
[2019-11-22] MEDS: MULTIVITAMIN (BEROCCA) TABLET PO SCH (10:38)
[2019-11-22] MEDS: THIAMINE 100 MG TABLET PO SCH (10:38)
[2019-11-22] MEDS: PANTOPRAZOLE 40 MG TABLET PO SCH (10:38)
[2019-11-22] MEDS: TOPIRAMATE 25 MG TABLET PO SCH (10:38)
[2019-11-22] MEDS: lisinopriL 2.5 MG TABLET PO SCH (10:38)
[2019-11-22] MEDS: FOLIC ACID 1 MG TABLET PO SCH (10:39)
[2019-11-22] MEDS: FERROUS SULFATE 325 MG TABLET PO SCH (10:39)
[2019-11-22] MEDS: ASPIRIN EC 325 MG TABLET PO SCH (10:39)
[2019-11-22] MEDS: HYDROXYCHLOROQUINE 200 MG TABLET PO SCH ×2 (10:39→21:56)
[2019-11-22] MEDS: ZIPRASIDONE 20 MG CAPSULE PO SCH ×2 (10:40→21:56)
[2019-11-22] MEDS: INSULIN GLARGINE 100 UNIT/ML SUBCUT SCH ×2 (10:41→21:55)
[2019-11-22] MEDS: ONDANSETRON 4 MG/2 ML VIAL IV PRN ×2 (10:48→21:58)
[2019-11-22] MEDS: DOCUSATE SODIUM 100 MG CAPSULE PO SCH (11:07)
[2019-11-22] MEDS: CHLORHEXIDINE 0.12% ORAL RINSE 60 ML BOTTLE SWISH/SPIT SCH ×2 (11:07→22:08)
[2019-11-22] MEDS ORDERED: ALBUTEROL 2.5 MG/3 ML NEB RESP TX ONE ×2 (11:15→18:36)
[2019-11-22] MEDS: NICOTINE 14 MG/24 HR PATCH TRANSDERM PRN (11:50)
[2019-11-22] MEDS: ATORVASTATIN 40 MG TABLET PO SCH (21:56)
[2019-11-22] MEDS: GABAPENTIN 300 MG CAPSULE PO SCH (21:56)
[2019-11-23] MEDS: ALBUTEROL 2.5 MG/3 ML NEB RESP TX SCH ×6 (01:40→19:43)
[2019-11-23] MEDS: KETOROLAC 30 MG/1 ML VIAL IV SCH ×2 (02:05→09:44)
[2019-11-23 04:21] LABS: Basophils % 0.1 % (0.0-0.8); Hematocrit 23.9 VOL% (35.7-47.0); Immature Granulocytes % 0.6 %; Immature Granulocytes Absolute 0.05 #; Lymphocytes # 1.9 10*3/uL (1.4-4.0); Lymphocytes % 24.1 % (21.3-54.2); Mean Corpuscular HGB Conc 33.5 GM/DL (32-36); Mean Corpuscular Volume 89.5 FL (87-102); Neutrophils % 66.2 % (38.7-73.9); Platelet Count 137 T/CUMM (130-400); Red Blood Count 2.67 MC/CUMM (3.8-5.5); Red Cell Distribution Width 14.1 % (9.3-17.3); White Blood Count 7.9 T/CUMM (4-12)
[2019-11-23 04:35] LABS: Calcium 8.3 MG/DL (8.5-10.1); Osmolality,Calculated 280.8 MOS/KG (273-304)
[2019-11-23 04:39] LABS: Alanine Aminotransferase 35 U/L (13-56); Albumin 2.3 G/DL (3.4-5.0); Alkaline Phosphatase 71 U/L (45-117); Aspartate Amino Transferase 22 U/L (0-37); Bilirubin,Indirect 0.3 MG/DL (0.0-1.0); Bilirubin,Total < 0.39 MG/DL (0.2-1.0); Blood Urea Nitrogen 21 MG/DL (7-18); Calcium 8.5 MG/DL (8.5-10.1); Estimated Glom Filtration Rate 60 ML/MIN; Glucose 189 MG/DL (74-106); Total Protein 5.1 G/DL (6.4-8.3)
[2019-11-23 04:59] LABS: Troponin I 0.193 NG/ML (0.00-0.045)
[2019-11-23] MEDS: ARFORMOTEROL 15 MCG/2 ML NEB RESP TX SCH ×2 (07:16→19:43)
[2019-11-23] MEDS ORDERED: SODIUM CHLORIDE 0.9% 1,000 ML IV PRN (08:12)
[2019-11-23] MEDS ORDERED: FUROSEMIDE 40 MG/4 ML VIAL IV ONE (08:17)
[2019-11-23] MEDS: INSULIN REGULAR 100 UNIT/ML SUBCUT SCH ×4 (08:32→21:21)
[2019-11-23] MEDS: MULTIVITAMIN (BEROCCA) TABLET PO SCH (09:50)
[2019-11-23] MEDS: HYDROXYCHLOROQUINE 200 MG TABLET PO SCH ×2 (09:50→21:21)
[2019-11-23] MEDS: ASPIRIN EC 325 MG TABLET PO SCH (09:50)
[2019-11-23] MEDS: ZIPRASIDONE 20 MG CAPSULE PO SCH ×2 (09:50→21:21)
[2019-11-23] MEDS: TOPIRAMATE 25 MG TABLET PO SCH (09:51)
[2019-11-23] MEDS: FOLIC ACID 1 MG TABLET PO SCH (09:51)
[2019-11-23] MEDS: ONDANSETRON 4 MG/2 ML VIAL IV PRN (09:51)
[2019-11-23] MEDS: FERROUS SULFATE 325 MG TABLET PO SCH (09:51)
[2019-11-23] MEDS: THIAMINE 100 MG TABLET PO SCH (09:51)
[2019-11-23] MEDS: PANTOPRAZOLE 40 MG TABLET PO SCH (09:51)
[2019-11-23] MEDS: oxyCODONE/ACETAMINOPHEN 5-325 MG TABLET PO PRN ×3 (09:51→21:21)
[2019-11-23] MEDS: CLORAZEPATE 3.75 MG TABLET PO PRN ×2 (09:56→17:44)
[2019-11-23] MEDS: NICOTINE 14 MG/24 HR PATCH TRANSDERM PRN (10:02)
[2019-11-23] MEDS: CHLORHEXIDINE 0.12% ORAL RINSE 60 ML BOTTLE SWISH/SPIT SCH ×2 (10:38→21:21)
[2019-11-23] MEDS: lisinopriL 2.5 MG TABLET PO SCH (10:38)
[2019-11-23] MEDS ORDERED: KETOROLAC 30 MG/1 ML VIAL IV PRN (10:38)
[2019-11-23] MEDS: DOCUSATE SODIUM 100 MG CAPSULE PO SCH (10:38)
[2019-11-23] MEDS: INSULIN GLARGINE 100 UNIT/ML SUBCUT SCH ×2 (10:38→21:32)
[2019-11-23] MEDS: OLANZapine 5 MG TABLET PO SCH (10:39)
[2019-11-23] MEDS ORDERED: SODIUM CHLORIDE 0.9% 250 ML IV ONE (14:51)
[2019-11-23] MEDS: ATORVASTATIN 40 MG TABLET PO SCH (21:21)
[2019-11-23] MEDS: GABAPENTIN 300 MG CAPSULE PO SCH (21:31)
[2019-11-23 22:09] LABS: Hematocrit 31.8 VOL% (35.7-47.0)
[2019-11-23 22:10] LABS: Hemoglobin 10.9 GM/DL (12.0-16.0)
[2019-11-24] MEDS: ALBUTEROL 2.5 MG/3 ML NEB RESP TX SCH ×4 (00:50→12:10)
[2019-11-24 06:07] LABS: Basophils % 0.4 % (0.0-0.8); Eosinophils # 0.1 10*3/uL (0.0-0.87); Eosinophils % 0.5 % (0.00-10.9); Hematocrit 34.2 VOL% (35.7-47.0); Hemoglobin 11.6 GM/DL (12.0-16.0); Immature Granulocytes % 1.5 %; Immature Granulocytes Absolute 0.15 #; Lymphocytes # 2.3 10*3/uL (1.4-4.0); Lymphocytes % 22.1 % (21.3-54.2); Mean Corpuscular HGB Conc 33.9 GM/DL (32-36); Mean Platelet Volume 10.9 FL (9.6-12.0); Monocytes % 8.8 % (1.7-12.7); Neutrophils % 66.7 % (38.7-73.9); Platelet Count 172 T/CUMM (130-400); Red Cell Distribution Width 13.7 % (9.3-17.3); White Blood Count 10.2 T/CUMM (4-12)
[2019-11-24 06:24] LABS: Calcium 9.1 MG/DL (8.5-10.1)
[2019-11-24] MEDS: ARFORMOTEROL 15 MCG/2 ML NEB RESP TX SCH (07:40)
[2019-11-24] MEDS: INSULIN REGULAR 100 UNIT/ML SUBCUT SCH (07:43)
[2019-11-24 08:41] VITALS: BP 106/63
[2019-11-24] MEDS ORDERED: GABAPENTIN 300 MG CAPSULE PO SCH (09:00)
[2019-11-24] MEDS: THIAMINE 100 MG TABLET PO SCH (09:03)
[2019-11-24] MEDS: FERROUS SULFATE 325 MG TABLET PO SCH (09:03)
[2019-11-24] MEDS: PANTOPRAZOLE 40 MG TABLET PO SCH (09:04)
[2019-11-24] MEDS: DOCUSATE SODIUM 100 MG CAPSULE PO SCH ×2 (09:04→09:07)
[2019-11-24] MEDS: lisinopriL 2.5 MG TABLET PO SCH (09:04)
[2019-11-24] MEDS: MULTIVITAMIN (BEROCCA) TABLET PO SCH (09:04)
[2019-11-24] MEDS: HYDROXYCHLOROQUINE 200 MG TABLET PO SCH (09:04)
[2019-11-24] MEDS: INSULIN GLARGINE 100 UNIT/ML SUBCUT SCH (09:04)
[2019-11-24] MEDS: TOPIRAMATE 25 MG TABLET PO SCH (09:04)
[2019-11-24] MEDS: ZIPRASIDONE 20 MG CAPSULE PO SCH (09:04)
[2019-11-24] MEDS: ASPIRIN EC 325 MG TABLET PO SCH (09:04)
[2019-11-24] MEDS: OLANZapine 5 MG TABLET PO SCH (09:04)
[2019-11-24] MEDS: FOLIC ACID 1 MG TABLET PO SCH (09:04)
[2019-11-24] MEDS: ONDANSETRON 4 MG/2 ML VIAL IV PRN (09:12)
[2019-11-24] MEDS: oxyCODONE/ACETAMINOPHEN 5-325 MG TABLET PO PRN (09:12)
[2019-11-24] MEDS: CHLORHEXIDINE 0.12% ORAL RINSE 60 ML BOTTLE SWISH/SPIT SCH (09:15)
== END 2019-11-24 13:10 | disposition home or self-care (01) | DRG 166 ==
LOC: N.4E 09:22 → N.CVR 11-19 10:50 → N.ICU 11-20 07:02 → N.TELES 11-21 13:28